=== PATIENT | male | born 1960 | race Caucasian/White ===

== ENCOUNTER 2018-01-18 19:11 | Emergency (ER) | payer OTHER ==
--- NOTE | 2018-01-18 19:46 | ED Physician Chart ---
ED Chief Complaint/HPI - Patient Information Date Seen:: 01/18/18 Time Seen:: 19:46 Chief Complaint:: Alcohol intoxication and right eyebrow laceration History of Present Illness:: 57 yo male was brought from home by ambulance to ER for evaluation of slip and fall. Patient was put on c-collar. Alcohol was noted from patient's breath. He had a laceration on his right eyebrow with periorbital swelling and old blood on face. Allergies:: Allergies Allergy/AdvReac Type Severity Reaction Status Date / Time No Known Allergies Allergy Verified 01/18/18 19:22 Vitals:: Vital Signs - 8 hr 01/18/18 19:22 Temp 97.6 F HR 97 RR 16 BP 110/68 O2 Sat % 94 ED Review of Systems - Review of Systems General/Constitutional: No fever Skin: Skin lesions, Bruising Head: Headache Eyes: Pain ENT: Other (old blood in right nose) Neck: No neck pain Cardio Vascular: No chest pain Pulmonary: No SOB GI: No nausea, No vomiting Musculoskeletal: Bone or joint pain Neurological: Weakness, Other (unsteady gait) ED Past Medical History - Past Medical History Past Medical History: Other (cardiac arrhythmia, sleep apnea) Social History: Smoker, Alcohol, No Drug Use Family Medical History - Family Member Mother History Unknown: Yes ED Physical Exam - Physical Examination General/Constitutional: Awake Other Gen/Cons comments:: Confused Other Head comments:: Right eyebrow laceration, right periorbital swelling. Eyes: PERRL Other ENMT comments:: old abrasions on the nose bridge Respiratory: No Wheeze/Rhonchi/Rales Cardio Vascular: RRR, No murmur, gallop, rubs, NL S1 S2 GI: No tenderness/rebounding/guarding Other Extremities comments:: Left thumb pain Neuro/Psych: Alert/oriented (oriented to self) Other Neuro/Psych comments:: unsteady gait ED Labs/Radiology/EKG Results - Lab Results Results: Laboratory Last Values WBC 7.9 Th/cmm (4.8-10.8) 01/18/18 19:55 RBC 4.08 Mil/cmm (4.30-5.70) L 01/18/18 19:55 Hgb 13.5 gm/dL (12-16) 01/18/18 19:55 Hct 39.5 % (41.0-60) L 01/18/18 19:55 MCV 96.7 fl (80-99) 01/18/18 19:55 MCH 33.1 pg (26.0-30.0) H 01/18/18 19:55 MCHC Differential 34.3 pg (28.0-36.0) 01/18/18 19:55 RDW 15.3 % (11.5-20.0) 01/18/18 19:55 Plt Count 190 Th/cmm (150-400) 01/18/18 19:55 MPV 6.9 fl 01/18/18 19:55 Band Neutrophils % 0 % (0-10) 01/18/18 19:55 Neutrophils (Manual) 60 % (40-80) 01/18/18 19:55 Lymphocytes 28 % (20-50) 01/18/18 19:55 Monocytes 10 % (2-10) 01/18/18 19:55 Eosinophils 4 % (0-5) 01/18/18 19:55 Basophils 0 % (0-3) 01/18/18 19:55 Platelet Estimate ADEQUATE (NORMAL) 01/18/18 19:55 Platelet Morphology NORMAL (NORMAL) 01/18/18 19:55 RBC Morph Micro Appear NORMAL (NORMAL) 01/18/18 19:55 Sodium 142 mEq/L (136-145) 01/18/18 19:55 Potassium 3.8 mEq/L (3.5-5.1) 01/18/18 19:55 Chloride 103 mEq/L (98-107) 01/18/18 19:55 Carbon Dioxide 29.4 mEq/L (21.0-31.0) 01/18/18 19:55 Anion Gap 13.4 (7.0-16.0) 01/18/18 19:55 BUN 8 mg/dL (7-25) 01/18/18 19:55 Creatinine 0.6 mg/dL (0.7-1.3) L 01/18/18 19:55 Est GFR ( Amer) > 60.0 ml/min (>90) 01/18/18 19:55 Est GFR (Non-Af Amer) > 60.0 ml/min 01/18/18 19:55 BUN/Creatinine Ratio 13.3 01/18/18 19:55 Glucose 126 mg/dL (70-105) H 01/18/18 19:55 Calcium 9.7 mg/dL (8.6-10.3) 01/18/18 19:55 Total Bilirubin 0.8 mg/dL (0.3-1.0) 01/18/18 19:55 AST 133 U/L (13-39) H 01/18/18 19:55 ALT 88 U/L (7-52) H 01/18/18 19:55 Alkaline Phosphatase 72 U/L (34-104) 01/18/18 19:55 Total Protein 7.2 gm/dL (6.0-8.3) 01/18/18 19:55 Albumin 4.2 gm/dL (4.2-5.5) 01/18/18 19:55 Globulin 3.0 gm/dL 01/18/18 19:55 Albumin/Globulin Ratio 1.4 (1.0-1.8) 01/18/18 19:55 Urine Source RANDOM 01/19/18 06:20 Urine Color YELLOW 01/19/18 06:20 Urine Clarity CLEAR (CLEAR) 01/19/18 06:20 Urine pH 6.0 (4.6 - 8.0) 01/19/18 06:20 Ur Specific [place] 1.025 (1.005-1.030) 01/19/18 06:20 Urine Protein NEGATIVE mg/dL (NEGATIVE) 01/19/18 06:20 Urine Glucose (UA) NEGATIVE mg/dL (NEGATIVE) 01/19/18 06:20 Urine Ketones NEGATIVE mg/dL (NEGATIVE) 01/19/18 06:20 Urine Blood NEGATIVE (NEGATIVE) 01/19/18 06:20 Urine Nitrate NEGATIVE (NEGATIVE) 01/19/18 06:20 Urine Bilirubin NEGATIVE (NEGATIVE) 01/19/18 06:20 Urine Urobilinogen 0.2 E.U./dL (0.2 - 1.0) 01/19/18 06:20 Ur Leukocyte Esterase NEGATIVE (NEGATIVE) 01/19/18 06:20 Urine RBC 0-2 /hpf (0-5) H 01/19/18 06:20 Urine WBC 0-2 /hpf (0-5) 01/19/18 06:20 Ur Epithelial Cells FEW /lpf (FEW) 01/19/18 06:20 Urine Bacteria OCCASIONAL /hpf (NONE SEEN) 01/19/18 06:20 Urine Mucus FEW /lpf (FEW) 01/19/18 06:20 Urine Opiates Screen NEGATIVE (NEGATIVE) 01/19/18 06:20 Urine Methadone Screen NEGATIVE (NEGATIVE) 01/19/18 06:20 Ur Barbiturates Screen NEGATIVE (NEGATIVE) 01/19/18 06:20 Ur Tricyclics Screen NEGATIVE (NEGATIVE) 01/19/18 06:20 Ur Phencyclidine Scrn NEGATIVE (NEGATIVE) 01/19/18 06:20 Amphetamines Screen NEGATIVE (NEGATIVE) 01/19/18 06:20 U Methamphetamines Scrn NEGATIVE (NEGATIVE) 01/19/18 06:20 U Benzodiazepines Scrn POSITIVE (NEGATIVE) H 01/19/18 06:20 U Cocaine Metab Screen NEGATIVE (NEGATIVE) 01/19/18 06:20 U Cannabinoids Screen NEGATIVE (NEGATIVE) 01/19/18 06:20 Ethyl Alcohol 34 mg/dL (0-10) H 01/19/18 06:30 - Radiology Results Results: C-spine XR: no acute fracture, mild to moderate degenerative changes ED Assessment - Assessment General Assessment: Alcohol intoxication Right eyebrow laceration Facial abrasion Assessment/Comments:: CBC, CMP, ETOH level UA, urine drug screen C-spine X ray CT head wo contrast (patient refused) Laceration repaired by glue NS 1L IV bolus Location:: Right eyebrow Laceration Type:: Simple Wound Length: 1 cm Prep/Irrigation:: NS, betadine Comments: Glued wound with Dermabond ED Septic Shock - . Is Septic Shock (SBP<90, OR Lactate>4 mmol\L) present?: No - <6hrs of presentation: Vital Signs: Vital Signs - 8 hr 01/18/18 19:22 Temp 97.6 F HR 97 RR 16 BP 110/68 O2 Sat % 94 ED Reassessment (Disposition) - Reassessment Reassessment Condition:: Improved - Patient Disposition Discharge/Transfer:: Home ED Discharge Plan - Patient Disposition Admit/Discharge/Transfer: PT DISCHARGED HOME Condition at Disposition: Stable Instructions: Alcohol Intoxication, [id number]
[2018-01-18 20:04] LABS: MANUAL DIFF REQUIRED? YES; MEAN CORPUSCULAR HEMOGLOBIN 33.1 pg (26.0-30.0); WHITE BLOOD COUNT 7.9 Th/cmm (4.8-10.8)
[2018-01-18 20:11] LABS: HEMATOCRIT 39.5 % (41.0-60); HEMOGLOBIN 13.5 gm/dL (12-16); MEAN CELL VOLUME 96.7 fl (80-99); MEAN CORPUSCULAR HGB CONC 34.3 pg (28.0-36.0); MEAN PLATELET VOLUME 6.9 fl; PLATELET COUNT 190 Th/cmm (150-400); RED BLOOD COUNT 4.08 Mil/cmm (4.30-5.70); RED CELL DISTRIBUTION WIDTH 15.3 % (11.5-20.0)
[2018-01-18 20:19] LABS: ALB/GLOB RATIO 1.4 (1.0-1.8); ALBUMIN 4.2 gm/dL (4.2-5.5); ALKALINE PHOSPHATASE 72 U/L (34-104); ANION GAP 13.4 (7.0-16.0); BILIRUBIN,TOTAL 0.8 mg/dL (0.3-1.0); BUN - UREA NITROGEN 8 mg/dL (7-25); CALCIUM SERUM 9.7 mg/dL (8.6-10.3); CARBON DIOXIDE 29.4 mEq/L (21.0-31.0); CHLORIDE 103 mEq/L (98-107); CREATININE - SERUM 0.6 mg/dL (0.7-1.3); GFR AFRICAN-AMERICAN > 60.0 ml/min (>90); GFR NON AFRICAN-AMERICAN > 60.0 ml/min; GLUCOSE 126 mg/dL (70-105); POTASSIUM SERUM 3.8 mEq/L (3.5-5.1); SGOT 133 U/L (13-39); SGPT/ALT 88 U/L (7-52); SODIUM SERUM 142 mEq/L (136-145); TOTAL PROTEIN,SERUM 7.2 gm/dL (6.0-8.3)
[2018-01-18] MEDS ORDERED: Sodium Chloride 0.9% 1,000 ML IV ONE (20:24)
[2018-01-18 20:31] LABS: TOTAL CELLS COUNTED 100
[2018-01-18 20:35] LABS: BAND NEUTROPHILE 0 % (0-10); BASOPHIL 0 % (0-3); EOSINOPHIL 4 % (0-5); LYMPHOCYTE 28 % (20-50); MONOCYTE 10 % (2-10); NEUTROPHILS 60 % (40-80)
[2018-01-18 20:36] LABS: PLATELET ESTIMATE ADEQUATE (NORMAL); PLATELET MORPHOLOGY NORMAL (NORMAL)
[2018-01-19 06:39] LABS: URINE MICROSCOPIC INDICATED? YES; URINE SOURCE RANDOM
[2018-01-19 06:49] LABS: URINE BILIRUBIN NEGATIVE (NEGATIVE); URINE BLOOD NEGATIVE (NEGATIVE); URINE GLUCOSE (UA) NEGATIVE (NEGATIVE); URINE KETONE NEGATIVE (NEGATIVE); URINE LEUKOCYTE ESTERASE NEGATIVE (NEGATIVE); URINE NITRATE NEGATIVE (NEGATIVE); URINE PROTEIN NEGATIVE (NEGATIVE); URINE UROBILINOGEN 0.2 E.U./dL (0.2 - 1.0)
[2018-01-19 07:02] LABS: BENZODIAZEPINES QUAL URINE POSITIVE (NEGATIVE)
[2018-01-19 07:03] LABS: AMPHETAMINE URINE NEGATIVE (NEGATIVE); BARBITURATES URINE NEGATIVE (NEGATIVE); CANNABINOID THC NEGATIVE (NEGATIVE); COCAINE METABOLITE QUAL URINE NEGATIVE (NEGATIVE); METHADONE URINE NEGATIVE (NEGATIVE); METHAMPHETAMINES QUAL URINE NEGATIVE (NEGATIVE); OPIATES (MORPHINE) QUAL. URINE NEGATIVE (NEGATIVE); PHENCYCLIDINE (PCP) URINE NEGATIVE (NEGATIVE); TRICYCLICS (TCA) QUAL. URINE NEGATIVE (NEGATIVE)
[2018-01-19 07:20] LABS: URINE CLARITY CLEAR (CLEAR); URINE COLOR YELLOW
[2018-01-19 07:23] LABS: URINE BACTERIA OCCASIONAL /hpf (NONE SEEN); URINE EPITHELIAL CELLS FEW /lpf (FEW); URINE RBC 0-2 /hpf (0-5); URINE WBC 0-2 /hpf (0-5)
--- NOTE | 2018-01-19 08:47 | Diagnostic Imaging Report ---
Cervical spine 3 limited views Indication: Trauma Comparison: none Findings: Exam is limited due to body habitus. There is visualization of the cervicothoracic junction. No evidence of acute compression fracture or subluxation the visualized portion cervical spine. Multilevel degenerative changes are seen with marginal osteophytic spurs the largest anteriorly at C4/C5. The atlantodental articulation is preserved. No prevertebral soft tissue swelling. Impression: Suboptimal evaluation of the cervicothoracic junction. No evidence of acute compression fracture of subluxation. If indicated, follow up CT examination may be obtained for further assessment. Degenerative changes. In the setting of trauma, if clinical symptoms persist and there is continued concern for an occult fracture, follow up exams in 5-7 days is suggested.
== END 2018-01-19 07:30 | disposition home or self-care (01) ==
LOC: ER 19:11
DX: S01.111A Laceration without foreign body of right eyelid and periocular area, initial encounter (principal); F10.129 Alcohol abuse with intoxication, unspecified; F17.200 Nicotine dependence, unspecified, uncomplicated; W01.0XXA Fall on same level from slipping, tripping and stumbling without subsequent striking against object, initial encounter; Y93.89 Activity, other specified; Y92.89 Other specified places as the place of occurrence of the external cause; Y99.8 Other external cause status
CPT/HCPCS: 99285; 12011; 72040; 36415 ×2; 80307; 85007; 85027; 85025; 81001; 80320 ×2; 80053; Q0162; J7030

== ENCOUNTER 2018-11-15 01:18 | Emergency (ER) | payer OTHER ==
--- NOTE | 2018-11-15 01:24 | ED Physician Chart ---
ED Chief Complaint/HPI - Patient Information Date Seen:: 11/15/18 Time Seen:: 01:22 Chief Complaint:: sob cp Allergies:: Allergies Allergy/AdvReac Type Severity Reaction Status Date / Time No Known Allergies Allergy Verified 01/18/18 19:22 Family Medical History - Family Member Mother History Unknown: Yes ED Septic Shock - . Is Septic Shock (SBP<90, OR Lactate>4 mmol\L) present?: No ED Reassessment (Disposition) - Reassessment Reassessment:: cp sob anxiety Reassessment Condition:: Unchanged (sob) - Diagnosis Diagnosis:: as above
[2018-11-15 01:58] LABS: % BASOPHILS 0.4 % (0.0-2.0); % EOSINOPHILS 3.8 % (0.0-5.0); % LYMPHOCYTES 30.3 % (20.0-50.0); % MONOCYTES 10.2 % (2.0-10.0); % NEUTROPHILS 55.3 % (40.0-80.0); EOSINOPHILE ABSOLUTE 0.4 Th/cmm (0.1-0.4); HEMATOCRIT 35.6 % (41.0-60); HEMOGLOBIN 12.1 gm/dL (12-16); LYMPHOCYTE ABSOLUTE 2.9 Th/cmm (1.5-3.0); MEAN CELL VOLUME 90.5 fl (80-99); MEAN CORPUSCULAR HEMOGLOBIN 30.8 pg (26.0-30.0); MEAN CORPUSCULAR HGB CONC 34.1 pg (28.0-36.0); MEAN PLATELET VOLUME 7.3 fl; NEUTROPHILE ABSOLUTE 5.3 Th/cmm (1.8-8.0); PLATELET COUNT 157 Th/cmm (150-400); RED BLOOD COUNT 3.94 Mil/cmm (4.30-5.70); RED CELL DISTRIBUTION WIDTH 17.8 % (11.5-20.0); WHITE BLOOD COUNT 9.6 Th/cmm (4.8-10.8)
[2018-11-15 02:11] LABS: ALB/GLOB RATIO 1.6 (1.0-1.8); ALBUMIN 4.4 gm/dL (4.2-5.5); ALKALINE PHOSPHATASE 66 U/L (34-104); ANION GAP 14.2 (7.0-16.0); BILIRUBIN,TOTAL 0.4 mg/dL (0.3-1.0); BUN - UREA NITROGEN 11 mg/dL (7-25); CALCIUM SERUM 9.7 mg/dL (8.6-10.3); CARBON DIOXIDE 24.7 mEq/L (21.0-31.0); CHLORIDE 108 mEq/L (98-107); CREATININE - SERUM 0.9 mg/dL (0.7-1.3); CREATININE KINASE 85 U/L (30-223); GFR AFRICAN-AMERICAN > 60.0 ml/min (>90); GFR NON AFRICAN-AMERICAN > 60.0 ml/min; GLUCOSE 102 mg/dL (70-105); POTASSIUM SERUM 3.9 mEq/L (3.5-5.1); SGOT 40 U/L (13-39); SGPT/ALT 33 U/L (7-52); SODIUM SERUM 143 mEq/L (136-145); TOTAL PROTEIN,SERUM 7.2 gm/dL (6.0-8.3)
== END 2018-11-15 03:06 | disposition home or self-care (01) ==
LOC: ER 01:18
DX: F41.9 Anxiety disorder, unspecified (principal); R07.89 Other chest pain; R06.02 Shortness of breath
CPT/HCPCS: 36415-UA; 80053-TC; 82550-TC; 84484-TC; 85025-TC; 93005

== ENCOUNTER 2018-11-20 04:09 | Emergency (ER) | payer OTHER ==
[2018-11-20 04:49] LABS: EOSINOPHILE ABSOLUTE 0.5 Th/cmm (0.1-0.4); HEMATOCRIT 38.3 % (41.0-60); HEMOGLOBIN 12.9 gm/dL (12-16); LYMPHOCYTE ABSOLUTE 3.6 Th/cmm (1.5-3.0); MEAN CELL VOLUME 89.8 fl (80-99); MEAN CORPUSCULAR HEMOGLOBIN 30.2 pg (26.0-30.0); MEAN CORPUSCULAR HGB CONC 33.6 pg (28.0-36.0); MONOCYTE ABSOLUTE 1.8 Th/cmm (0.3-1.0); NEUTROPHILE ABSOLUTE 5.6 Th/cmm (1.8-8.0); PLATELET COUNT 230 Th/cmm (150-400); RED BLOOD COUNT 4.27 Mil/cmm (4.30-5.70); RED CELL DISTRIBUTION WIDTH 17.3 % (11.5-20.0); WHITE BLOOD COUNT 11.5 Th/cmm (4.8-10.8)
[2018-11-20 05:07] LABS: ALB/GLOB RATIO 1.3 (1.0-1.8); ALBUMIN 3.9 gm/dL (4.2-5.5); ALKALINE PHOSPHATASE 57 U/L (34-104); ANION GAP 16.7 (7.0-16.0); BILIRUBIN,TOTAL 0.4 mg/dL (0.3-1.0); BUN - UREA NITROGEN 17 mg/dL (7-25); CALCIUM SERUM 9.2 mg/dL (8.6-10.3); CARBON DIOXIDE 23.4 mEq/L (21.0-31.0); CHLORIDE 105 mEq/L (98-107); CREATININE KINASE 155 U/L (30-223); GFR AFRICAN-AMERICAN > 60.0 ml/min (>90); GFR NON AFRICAN-AMERICAN > 60.0 ml/min; GLUCOSE 97 mg/dL (70-105); POTASSIUM SERUM 4.1 mEq/L (3.5-5.1); SGOT 23 U/L (13-39); SGPT/ALT 20 U/L (7-52); SODIUM SERUM 141 mEq/L (136-145); TOTAL PROTEIN,SERUM 6.9 gm/dL (6.0-8.3)
[2018-11-20 05:21] LABS: URINE SOURCE RANDOM
[2018-11-20 05:29] LABS: URINE BILIRUBIN NEGATIVE (NEGATIVE); URINE BLOOD NEGATIVE (NEGATIVE); URINE GLUCOSE (UA) NEGATIVE (NEGATIVE); URINE KETONE NEGATIVE (NEGATIVE); URINE LEUKOCYTE ESTERASE NEGATIVE (NEGATIVE); URINE NITRATE NEGATIVE (NEGATIVE); URINE PH 5.5 (4.6 - 8.0); URINE PROTEIN NEGATIVE (NEGATIVE); URINE UROBILINOGEN 0.2 E.U./dL (0.2 - 1.0)
[2018-11-20 05:30] LABS: BAND NEUTROPHILE 6 % (0-10); LYMPHOCYTE 25 % (20-50); MONOCYTE 12 % (2-10); NEUTROPHILS 57 % (40-80)
[2018-11-20] MEDS ORDERED: Aspirin 325 mg EC PO ONE (05:48)
[2018-11-20 05:49] LABS: URINE CLARITY CLEAR (CLEAR); URINE COLOR STRAW; URINE MICROSCOPIC INDICATED? NO
[2018-11-20] MEDS ORDERED: Sodium Chloride 0.9% 1,000 ML IV ONE (05:55)
--- NOTE | 2018-11-20 06:07 | ED Physician Chart ---
ED Chief Complaint/HPI - Patient Information Date Seen:: 11/20/18 Time Seen:: 04:16 Chief Complaint:: heart racing History of Present Illness:: this is a 58 yo male with sob and rapid heart beat who is concerned about being weak. he smokes, has a history of heart disease,copd, sleep apnea, dyslipidemia ,hypertension and anxiety. he also drinks alcohol. he also has left shoulder pain 5/10 on and off. his symptoms has been going on for several days with any uri symptom of cough and fever. Allergies:: Allergies Allergy/AdvReac Type Severity Reaction Status Date / Time No Known Drug Allergies Allergy Verified 11/15/18 01:45 Vitals:: Vital Signs - 8 hr 11/20/18 04:10 Temp 98.1 F HR 71 RR 17 BP 135/73 O2 Sat % 96 Historian:: Patient Review:: Nurse's Note Reviewed, Old Chart Reviewed ED Review of Systems - Review of Systems General/Constitutional: No fever, No chills, No weight loss, Weakness, No diaphoresis, No edema, No loss of appetite Skin: No skin lesions, No rash, No bruising Head: No headache, No light-headedness Eyes: No loss of vision, No pain, No diplopia ENT: No earache, No nasal drainage, No sore throat, No tinnitus Neck: No neck pain, No swelling, No thyromegaly, No stiffness, No mass noted Cardio Vascular: Chest pain, Palpitations, No PND, No orthopnea, No edema Pulmonary: SOB, No cough, No sputum, No wheezing GI: No nausea, No vomiting, No diarrhea, No pain, No melena, No hematochezia, No constipation, No hematemesis G/U: No dysuria, No frequency, No hematuria Musculoskeletal: No bone or joint pain, No back pain, No muscle pain Endocrine: No polyuria, No polydipsia Psychiatric: No prior psych history, No depression, No anxiety, No suicidal ideation Hematopoietic: No bruising, No lymphadenopathy Allergic/Immuno: No urticaria, No angioedema Neurological: No syncope, No focal symptoms, No weakness, No paresthesia, No headache, No seizure, No dizziness, No confusion, No vertigo ED Past Medical History - Past Medical History Obtainable: Yes Past Medical History: HTN, CAD, Asthma/COPD, Dyslipidemia Family History: None Social History: Smoker, Alcohol, No Drug Use Surgical History: None Psychiatricy History: Other (anxiety) Medication: Reviewed Family Medical History - Family Member Mother History Unknown: Yes ED Physical Exam - Physical Examination General/Constitutional: Awake, Well-developed, well-nourished, Alert, No distress, GCS 15, Non-toxic appearing, Ambulatory Head: Atraumatic Eyes: Lids, conjuctiva normal, PERRL, EOMI Skin: Nl inspection, No rash, No skin lesions, No ecchymosis, Well hydrated, No lymphadenopathy ENMT: External ears, nose nl, Nasal exam nl, Lips, teeth, gums nl Neck: Nontender, Full ROM w/o pain, No JVD, No nuchal rigidity, No bruit, No mass, No stridor Respiratory: Nl effort/Exclusion, Clear to Auscultation, No Wheeze/Rhonchi/Rales Cardio Vascular: RRR, No murmur, gallop, rubs, NL S1 S2 GI: No tenderness/rebounding/guarding, No organomegaly, No hernia, Normal BS's, Nondistended, No mass/bruits, No McBurney tenderness : No CVA tenderness Extremities: No tenderness or effusion, Full ROM, normal strength in all extremities, No edema, Normal digits & nails Neuro/Psych: Alert/oriented, DTR's symmetric, Normal sensory exam, Normal motor strength, Judgement/insight normal, Mood normal, Normal gait, No focal deficits Misc: Normal back, No paraspinal tenderness ED Labs/Radiology/EKG Results - Lab Results Results: Laboratory Tests 11/20/18 11/20/18 11/20/18 04:22 04:22 05:15 WBC 11.5 H RBC 4.27 L Hgb 12.9 Hct 38.3 L MCV 89.8 MCH 30.2 H MCHC Differential 33.6 RDW 17.3 Plt Count 230 MPV 7.0 Add Manual Diff YES Band Neutrophils % 6 Neutrophils (Manual) 57 Lymphocytes 25 Monocytes 12 H Sodium 141 Potassium 4.1 Chloride 105 Carbon Dioxide 23.4 Anion Gap 16.7 H BUN 17 Creatinine 1.0 Est GFR ( Amer) > 60.0 Est GFR (Non-Af Amer) > 60.0 BUN/Creatinine Ratio 17.0 Glucose 97 Calcium 9.2 Total Bilirubin 0.4 AST 23 ALT 20 Alkaline Phosphatase 57 Creatine Kinase 155 Total Protein 6.9 Albumin 3.9 L Globulin 3.0 Albumin/Globulin Ratio 1.3 Urine Source RANDOM Urine Color STRAW Urine Clarity CLEAR Urine pH 5.5 Ur Specific [place] 1.020 Urine Protein NEGATIVE Urine Glucose (UA) NEGATIVE Urine Ketones NEGATIVE Urine Blood NEGATIVE Urine Nitrate NEGATIVE Urine Bilirubin NEGATIVE Urine Urobilinogen 0.2 Ur Leukocyte Esterase NEGATIVE - Radiology Results Results: chest x-ray = nad - EKG Interpretations EKG Time:: 04:28 Rate & Rhythm: rate = 120, atrial fib [place]: right ED Assessment - Assessment General Assessment: this patient has a low bp, rapid heart rate and symptomatic. he will get a fluid challenge to get the bp up and may get some verapermil iv. the on coming doctor will have to decide whether he should be admitted or not. the patient was given toradol for his left shoulder pain from an old fracture. ED Septic Shock - . Is Septic Shock (SBP<90, OR Lactate>4 mmol\L) present?: No - <6hrs of presentation: Vital Signs: Vital Signs - 8 hr 11/20/ 04:10 Temp 98.1 F HR 71 RR 17 BP 135/73 O2 Sat % 96 ED Reassessment (Disposition) - Reassessment Reassessment Condition:: Improved - Diagnosis Diagnosis:: atrial fibrillation left shoulder pain alcohol abuse - Aftercare/Follow up Instructions Notes:: this patient will be taken care of by dr Galvez starting at 0700 hrs.
[2018-11-20 06:15] LABS: AMPHETAMINE URINE NEGATIVE (NEGATIVE); BARBITURATES URINE NEGATIVE (NEGATIVE); BENZODIAZEPINES QUAL URINE POSITIVE (NEGATIVE); CANNABINOID THC NEGATIVE (NEGATIVE); COCAINE METABOLITE QUAL URINE NEGATIVE (NEGATIVE); METHADONE URINE NEGATIVE (NEGATIVE); METHAMPHETAMINES QUAL URINE NEGATIVE (NEGATIVE); OPIATES (MORPHINE) QUAL. URINE NEGATIVE (NEGATIVE); PHENCYCLIDINE (PCP) URINE NEGATIVE (NEGATIVE); TRICYCLICS (TCA) QUAL. URINE NEGATIVE (NEGATIVE)
--- NOTE | 2018-11-20 09:33 | Diagnostic Imaging Report ---
Chest x-ray single view History: Chest pain Comparison: None The heart size is normal. No focal pulmonary parenchymal processes. No hilar or mediastinal abnormalities. Impression: No acute abnormalities
== END 2018-11-20 08:15 | disposition home or self-care (01) ==
LOC: ER 04:09
DX: I48.91 Unspecified atrial fibrillation (principal); F10.10 Alcohol abuse, uncomplicated; M25.512 Pain in left shoulder; I10 Essential (primary) hypertension; I25.10 Atherosclerotic heart disease of native coronary artery without angina pectoris; J44.9 Chronic obstructive pulmonary disease, unspecified; E78.5 Hyperlipidemia, unspecified; F17.200 Nicotine dependence, unspecified, uncomplicated
CPT/HCPCS: 99284; 96372; 96374; 93005; 71045; 84484; 36415; 80307; 85007; 85025; 81003; 80320; 82550; 80053; 87081; J1885; J0696; J7030

== ENCOUNTER 2018-12-16 11:30 | Inpatient (IN) | payer OTHER ==
[2018-12-16] MEDS ORDERED: Aspirin 81mg Chewable Tab PO STA (11:39)
[2018-12-16] MEDS ORDERED: Aspirin 81mg Chewable Tab ONE (11:42)
--- NOTE | 2018-12-16 11:46 | ED Physician Chart ---
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 Pain, A/N/V/D/C, fever, chills, or urinary s/s Allergies:: Allergies Allergy/AdvReac Type Severity Reaction Status Date / Time No Known Drug Allergies Allergy Verified 11/15/18 01:45 Historian:: Patient Review:: Nurse's Note Reviewed, Old Chart Reviewed ED Review of Systems - Review of Systems General/Constitutional: No fever, No chills, No weight loss, No weakness, No diaphoresis, No edema, No loss of appetite Skin: No skin lesions, No rash, No bruising Head: No headache, No light-headedness Eyes: No loss of vision, No pain, No diplopia ENT: No earache, No nasal drainage, No sore throat, No tinnitus Neck: No neck pain, No swelling, No thyromegaly, No stiffness, No mass noted Cardio Vascular: Chest pain, Palpitations, No PND, No orthopnea, No edema Pulmonary: SOB, No cough, No sputum, No wheezing GI: No nausea, No vomiting, No diarrhea, No pain, No melena, No hematochezia, No constipation, No hematemesis G/U: No dysuria, No frequency, No hematuria, No nacturia Musculoskeletal: No bone or joint pain, No back pain, No muscle pain Endocrine: No polyuria, No polydipsia Psychiatric: No prior psych history, No depression, No anxiety, No suicidal ideation, No homicidal ideation, No auditory hallucination, No visual hallucination Hematopoietic: No bruising, No lymphadenopathy Allergic/Immuno: No urticaria, No angioedema Neurological: No syncope, No focal symptoms, No weakness, No paresthesia, No headache, No seizure, No dizziness, No confusion, No vertigo ED Past Medical History - Past Medical History Obtainable: Yes Past Medical History: HTN, Other (Cardiac Arrythmias) Family History: HTN Social History: Smoker, Alcohol, No Drug Use, Surgical History: None Psychiatricy History: None Medication: Reviewed Family Medical History - Family Member Mother History Unknown: Yes ED Physical Exam - Physical Examination General/Constitutional: Awake, Well-developed, well-nourished, Alert, No distress, GCS 15, Non-toxic appearing, Ambulatory Head: Atraumatic Eyes: Lids, conjuctiva normal, PERRL, EOMI Skin: Nl inspection, No rash, No skin lesions, No ecchymosis, Well hydrated, No lymphadenopathy ENMT: External ears, nose nl, TM canals nl, Nasal exam nl, Lips, teeth, gums nl , Oropharynx nl, Tonsils nl Neck: Nontender, Full ROM w/o pain, No JVD, No nuchal rigidity, No bruit, No mass, No stridor Other Neck comments:: supple; no meningeal signs; no cervical tenderness Respiratory: Nl effort/Exclusion, Clear to Auscultation, No Wheeze/Rhonchi/Rales Cardio Vascular: RRR, No murmur, gallop, rubs, NL S1 S2, Carotid/Femoral/Distal pulses equal bilaterally GI: No tenderness/rebounding/guarding, No organomegaly, No hernia, Normal BS's, Nondistended, No mass/bruits, No McBurney tenderness Other GI comments:: no pulsatile masses : No CVA tenderness Extremities: No tenderness or effusion, Full ROM, normal strength in all extremities, No edema, Normal digits & nails Neuro/Psych: Alert/oriented, DTR's symmetric, Normal sensory exam, Normal motor strength, Judgement/insight normal, Mood normal, Normal gait, No focal deficits Misc: Normal back, No paraspinal tenderness ED Labs/Radiology/EKG Results - Lab Results Comments:: Reviewed - Radiology Results Comments:: CM; MAD; Mild Chronic Lung Changes; Old Left Humeral Head and Neck Fractures; ASCVD - EKG Interpretations EKG Time:: 11:40 Rate & Rhythm: 74; NSR Comments:: LAE; PVCs; non-specific st-t changes ED Septic Shock - . Is Septic Shock (SBP<90, OR Lactate>4 mmol\L) present?: No ED Reassessment (Disposition) - Reassessment Reassessment Condition:: Improved - Diagnosis Diagnosis:: Palpitations; Cardiac Arrythmias; Chest Pain; Dyspnea; Angina Pectoris; HTN; Leukocytosis; Hypoalbuminemia; Unstable Angina - Aftercare/Follow up Instructions Aftercare/Follow-Up Instructions:: Counseled pt regarding lab results/diagnosis & need follow up, Counseled pt & family regarding lab results/diagnosis & need follow up - Patient Disposition Discharge/Transfer:: Acute Care w/in this hosp Accepting Physician:: Dr. Alcocer Time Called:: 0350 Time Responded:: 13:40 Admitted to:: Telemetry Spoke to:: Dr. Alcocer Admitting Medical Physician:: Dr. Alcocer Condition at Disposition:: Stable, Improved
[2018-12-16 12:00] LABS: HEMATOCRIT 37.2 % (41.0-60); HEMOGLOBIN 12.4 gm/dL (12-16); MEAN CELL VOLUME 90.5 fl (80-99); MEAN CORPUSCULAR HEMOGLOBIN 30.1 pg (26.0-30.0); MEAN CORPUSCULAR HGB CONC 33.2 pg (28.0-36.0); MEAN PLATELET VOLUME 7.4 fl; PLATELET COUNT 193 Th/cmm (150-400); RED BLOOD COUNT 4.11 Mil/cmm (4.30-5.70); RED CELL DISTRIBUTION WIDTH 16.6 % (11.5-20.0); WHITE BLOOD COUNT 12.3 Th/cmm (4.8-10.8)
--- NOTE | 2018-12-16 12:07 | Diagnostic Imaging Report ---
CHEST X-RAY: AP view INDICATION: pain COMPARISON: 11/20/2018 FINDINGS: Mild chronic lung changes are noted. There is no focal consolidation or pleural effusions The heart is upper limits of normal in size. There is minimal atherosclerosis of the aortic arch. There is evidence of an age-indeterminate displaced impacted left humeral head and neck fracture. IMPRESSION: No focal consolidation identified. Minimal atherosclerosis of the aortic arch. Age indeterminate displaced impacted fracture of the left humeral head and neck. Findings may be chronic. Please correlate clinical history and old exams. Consider additional dedicated left shoulder views if indicated.
[2018-12-16 12:10] LABS: INR 1.08 (0.5-1.4); PROTHROMBIN TIME (TEST) 11.2 SECONDS (9.5-11.5)
[2018-12-16 12:19] LABS: ALB/GLOB RATIO 1.2 (1.0-1.8); ALBUMIN 4.1 gm/dL (4.2-5.5); ALKALINE PHOSPHATASE 68 U/L (34-104); ANION GAP 15.1 (7.0-16.0); BILIRUBIN,TOTAL 0.9 mg/dL (0.3-1.0); BUN - UREA NITROGEN 14 mg/dL (7-25); CALCIUM SERUM 9.3 mg/dL (8.6-10.3); CARBON DIOXIDE 24.8 mEq/L (21.0-31.0); CHLORIDE 104 mEq/L (98-107); CHOLESTEROL 108 mg/dL (<200); CREATININE KINASE 71 U/L (30-223); GFR AFRICAN-AMERICAN > 60.0 ml/min (>90); GFR NON AFRICAN-AMERICAN > 60.0 ml/min; GLUCOSE 103 mg/dL (70-105); HDL -HIGH DENSITY LIPOPROTEIN 40 mg/dL (23-92); POTASSIUM SERUM 3.9 mEq/L (3.5-5.1); SGOT 26 U/L (13-39); SGPT/ALT 17 U/L (7-52); SODIUM SERUM 140 mEq/L (136-145); TOTAL PROTEIN,SERUM 7.5 gm/dL (6.0-8.3); TRIGLYCERIDES 88 mg/dL (<150)
[2018-12-16 12:28] LABS: BAND NEUTROPHILE 2 % (0-10); BASOPHIL 0 % (0-3); EOSINOPHIL 1 % (0-5); LYMPHOCYTE 13 % (20-50); MONOCYTE 10 % (2-10); NEUTROPHILS 74 % (40-80)
[2018-12-16] MEDS ORDERED: NITROGLYCERIN OINT 2% 1 INCH PACKET TP STA (12:31)
[2018-12-16] MEDS ORDERED: NITROGLYCERIN OINT 2% 1 INCH PACKET TP ONE (12:34)
[2018-12-16 12:51] LABS: DDIMER QUANT 222 ng/mL (100-400)
[2018-12-16 17:12] VITALS: BP 114/78
[2018-12-16] MEDS: Sulfamethoxazole/TMP 800/160mg Tab PO SCH (17:48)
[2018-12-16] MEDS: NITROGLYCERIN OINT 2% 1 INCH PACKET TP SCH (17:55)
[2018-12-17 05:05] LABS: BASOPHILE ABSOLUTE 0.1 Th/cumm (0-0.2); EOSINOPHILE ABSOLUTE 0.2 Th/cmm (0.1-0.4); HEMATOCRIT 33.9 % (41.0-60); HEMOGLOBIN 11.2 gm/dL (12-16); LYMPHOCYTE ABSOLUTE 2.4 Th/cmm (1.5-3.0); MEAN CELL VOLUME 92.1 fl (80-99); MEAN CORPUSCULAR HEMOGLOBIN 30.4 pg (26.0-30.0); MONOCYTE ABSOLUTE 1.9 Th/cmm (0.3-1.0); NEUTROPHILE ABSOLUTE 5.6 Th/cmm (1.8-8.0); PLATELET COUNT 178 Th/cmm (150-400); RED BLOOD COUNT 3.68 Mil/cmm (4.30-5.70); RED CELL DISTRIBUTION WIDTH 16.4 % (11.5-20.0); WHITE BLOOD COUNT 10.2 Th/cmm (4.8-10.8)
[2018-12-17 05:29] LABS: ALB/GLOB RATIO 1.3 (1.0-1.8); ALBUMIN 3.8 gm/dL (4.2-5.5); ALKALINE PHOSPHATASE 67 U/L (34-104); ANION GAP 13.6 (7.0-16.0); BILIRUBIN,TOTAL 0.5 mg/dL (0.3-1.0); BUN - UREA NITROGEN 20 mg/dL (7-25); CALCIUM SERUM 9.2 mg/dL (8.6-10.3); CHLORIDE 103 mEq/L (98-107); CHOLESTEROL 99 mg/dL (<200); GFR AFRICAN-AMERICAN > 60.0 ml/min (>90); GFR NON AFRICAN-AMERICAN > 60.0 ml/min; GLUCOSE 78 mg/dL (70-105); HDL -HIGH DENSITY LIPOPROTEIN 37 mg/dL (23-92); POTASSIUM SERUM 3.6 mEq/L (3.5-5.1); SGOT 20 U/L (13-39); SGPT/ALT 16 U/L (7-52); SODIUM SERUM 137 mEq/L (136-145); TOTAL PROTEIN,SERUM 6.8 gm/dL (6.0-8.3); TRIGLYCERIDES 81 mg/dL (<150)
[2018-12-17 06:22] LABS: BAND NEUTROPHILE 2 % (0-10); LYMPHOCYTE 26 % (20-50); MONOCYTE 12 % (2-10); NEUTROPHILS 60 % (40-80)
[2018-12-17] MEDS: Sulfamethoxazole/TMP 800/160mg Tab PO SCH ×2 (08:24→16:07)
[2018-12-17] MEDS: NITROGLYCERIN OINT 2% 1 INCH PACKET TP SCH ×2 (08:27→16:04)
[2018-12-17] MEDS: Aspirin 81mg Chewable Tab PO SCH ×2 (08:27→12:38)
[2018-12-17] MEDS ORDERED: Atorvastatin Calcium 10 MG TAB PO SCH (09:00)
[2018-12-17] MEDS ORDERED: Non-Formulary Item 1 EA (Albuterol Sulfate [Proair Hfa] 2 PUFF) IH PRN (11:26)
[2018-12-17] MEDS: Multivitamin Tab PO SCH (13:00)
[2018-12-17] MEDS: Pantoprazole 40 mg EC Tab PO SCH (13:00)
--- NOTE | 2018-12-17 13:25 | History & Physical ---
ADMIT DATE: 12/16/2018 CHIEF COMPLAINT: Chest pressure. HISTORY OF PRESENT ILLNESS: This is a 58-year-old gentleman who presented to the ER with a 6-hour history of chest pressure, mostly located on the left sternal border, associated with palpitations. He has been experiencing this kind of pressure on and off for the last 2 months and had an extensive cardiac workup at the [facility] about 3 weeks ago. The patient apparently had a stress test and a cardiac catheterization with negative workup. At that time, he was prescribed aspirin, statin and a beta tianna, but still he complains of on and off chest pressure. He apparently went to the [facility] prior to coming to the ER and was told that most likely this pressure was not cardiac in nature, but given the persistence of a pressure, he decided to come in to our ER and now has been admitted to the tele[facility] for management and care. He does have history of trauma to the left shoulder and to the chest after he suffered a fall a couple of years ago. PAST MEDICAL HISTORY: History of htn and hyperlipidemia, history of neuropathy. 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 He does have an extensive history of nicotine dependence, about of 40+ year 1 pack history. He has been diagnosed with cardiac arrhythmia, although he is not sure of the name. PAST SURGICAL HISTORY: No major surgeries reported. FAMILY HISTORY: Both parents are in their mid 80s. No cardiac issues per se. SOCIAL HISTORY: Extensive ETOH history, quit about 3 weeks ago and feels he still is a little jittery, but denies any withdrawals. He smokes about half a pack a day nowadays, but for years, he was smoking a pack a day. He has been smoking since his teenage years. ALLERGIES: NKDA. OUTPATIENT MEDICATIONS: Bactrim one tab b.i.d., ProAir 2 puffs q.4 p.r.n., aspirin 81 every day, atorvastatin 40 every day, folic acid 1 mg every day, gabapentin 300 mg t.i.d., Motrin 800 mg t.i.d.; lorazepam 1 mg q.6, metoprolol 25 mg b.i.d., omeprazole 20 mg every day, tramadol 50 mg q.8 p.r.n. for pain. REVIEW OF SYSTEMS: CONSTITUTIONAL: No fever or chills. No recent weight loss. CARDIOVASCULAR: Please refer to the HPI. PULMONARY: No cough or phlegm production. He denies any shortness of breath. GASTROINTESTINAL: No bowel habit changes. GENITOURINARY: He was prescribed Bactrim at the [facility] for UTI, but he denies any UTI symptomatology at this time. NEUROLOGIC: Peripheral neuropathy on both lower extremities. MUSCULOSKELETAL: Chronic left shoulder pain after the fall, also complaining of right hand pain, right pinky pain. PHYSICAL EXAMINATION: VITAL SIGNS: Temperature 98.0, pulse 68, respirations 16, BP 117/65, satting 98% on room air. GENERAL: Well-developed, well-nourished male, not in acute distress, speaking in full sentences. HEAD AND NECK: Normocephalic, atraumatic. Pupils reactive to light. Extraocular movements are intact. Oropharynx moist and clear. CARDIAC: Regular rate and rhythm with distant sounds. No audible S1, S2 could be heard at this time. LUNGS: Diminished at the bases, but clear to auscultation bilaterally. ABDOMEN: Soft, supple, nontender, nondistended, normoactive bowel sounds. LOWER EXTREMITIES: No pedal edema. CHEST WALL: There is mild tenderness to palpation on the left sternal border. LABORATORY DATA: White count 12.3, H and H 12/37, with platelets 193. Chemistry was within normal limits. Troponins are negative x 2 sets. BNP 102. LFTs were essentially within normal limits. The lipid panel shows cholesterol level of 108, LDL 57, HDL 40. TSH was within normal limits. DIAGNOSTICS: EKG, sinus rhythm at a rate of 60. Chest x-ray, no focal consolidations identified, minimal atherosclerosis of the aortic arch, age indeterminate displaced impacted fracture of the left humeral head and neck, findings may be chronic. ASSESSMENT: 1. Chest pressure, rule out acute coronary syndrome. The patient with recent extensive workup negative for coronary artery disease. Risk factors include hypertension and history of hyperlipidemia. Other factors include nicotine dependence. 2. History of arrhythmia. 3. History of chronic ETOH with a peripheral neuropathy. 4. Nicotine dependence. PLAN: The patient has been admitted to the tele [facility] for management and care. We will continue to monitor troponins. A 2D echo also has been ordered. Cardiology consult will also be asked for further management and care. At this time, the patient appears to be stable and has been started on his medications including the metoprolol for the presumed arrhythmia and the statin. He also has been kept on his aspirin as scheduled. I have discussed current findings and plan with the patient who is agreeable. JOB# [id number]
[2018-12-17] MEDS ORDERED: Probiotic Screen MC PRN (15:25)
[2018-12-17] MEDS: Lactobacillus Rhamnosus GG 15 Billion CFU CAP.SPRINK PO SCH (16:09)
[2018-12-17] MEDS ORDERED: Albuterol Nebulizer 2.5mg/3mL HHN PRN (18:51)
--- NOTE | 2018-12-17 23:18 | Consultation ---
DATE OF CONSULTATION: 12/16/[address] Alcocer. HISTORY OF PRESENT ILLNESS: This is a 58-year-old male patient recently admitted to rehab hospital for 3 weeks ago complaining of chest pain. The patient had a stress test, coronary angiogram, which was negative. Following this, the patient was discharged. PAST MEDICAL HISTORY: Hyperlipidemia, peripheral neuropathy secondary to ETOH use, alcohol dependence, nicotine dependence. FAMILY HISTORY: Unremarkable. SOCIAL HISTORY: The patient has a history of smoking or alcohol use. ALLERGIES: None. PHYSICAL EXAMINATION: VITAL SIGNS: Blood pressure 130/80, pulse 70, respirations 20. HEAD: Normocephalic. No lumps or bumps. EYES: Pupils equal, reactive to light. Fundi show AV nicking, sclerae white, conjunctivae pink. NECK: Carotid 2+. Normal upstroke. JVD flat. Thyroid not palpable. Lymph nodes not palpable. CHEST: Shows increased AP diameter. No kyphosis or scoliosis. LUNGS: Bilateral bronchovesicular breath sounds. HEART: PMI fifth intercostal space with lateral to midclavicular line. S1, S2. No S3, S4, soft systolic murmur. ABDOMEN: Soft. Liver, spleen not palpable. No organomegaly. Bowel sounds active. NEUROLOGIC: The patient has peripheral neuropathy. EXTREMITIES: Peripheral pulses 2+. No pedal edema. CLINICAL IMPRESSION: Atypical chest pain unlikely coronary artery disease with recent coronary angiogram negative, hyperlipidemia, peripheral neuropathy, alcohol dependence, nicotine dependence. PLAN: The patient's troponin levels are normal. EKG unremarkable. The patient cleared for discharge. [facility]# [id number]
[2018-12-18] MEDS: Pantoprazole 40 mg EC Tab PO SCH (06:44)
[2018-12-18] MEDS: Sulfamethoxazole/TMP 800/160mg Tab PO SCH (08:38)
[2018-12-18] MEDS: Multivitamin Tab PO SCH (08:38)
[2018-12-18] MEDS: Aspirin 81mg Chewable Tab PO SCH ×2 (08:39→08:59)
[2018-12-18] MEDS: Lactobacillus Rhamnosus GG 15 Billion CFU CAP.SPRINK PO SCH (08:40)
[2018-12-18] MEDS: NITROGLYCERIN OINT 2% 1 INCH PACKET TP SCH (09:00)
--- NOTE | 2018-12-19 16:14 | Discharge Summary ---
DATE OF DISCHARGE: 12/18/2018 ADMITTING DIAGNOSES: 1. Chest pain, rule out acute coronary syndrome. 2. Palpitations. SECONDARY DIAGNOSES: Includes history of arrhythmia, previous history of chest pain with negative workup, history of ETOH, chronic ETOH, history of dyslipidemia, history of hypertension, history of nicotine dependence. DISCHARGE DIAGNOSES: 1. Likely atypical chest pain, negative workup for acute coronary syndrome. 2. Palpitations. Clinically, stable. CONSULTANTS: Dr. Dustin Lazaro, Cardiology. MAJOR PROCEDURES: There was a 2D echo done with preliminary results being negative (official results pending). BRIEF HOSPITAL COURSE: A 58-year-old gentleman who presented to the ER with a 6-hour history of chest pressure, mostly located on the left sternal border associated with palpitations. Apparently, the patient has been experiencing this pressure for the last few weeks, perhaps 2 months and had extensive workup at the [facility] 3 weeks ago, which included a stress test and a cardiac catheterization with negative results. Nevertheless, he has been prescribed aspirin, statin, and a beta-tianna. He was told that he had an arrhythmia, but is unsure as to the name of it. He decided to come into the ER given that the pressure did not subside. At the time of admission, he had no radiation of the pressure, no shortness of breath, no diaphoresis, no nausea, vomiting, but was complaining of palpitations. He was admitted to the [facility] and was kept on his medications as scheduled. His troponins were negative and the rest of his labs were essentially within normal limits. The patient had EKGs and a 2D echo with apparent negative results. The patient was seen by Cardiology who cleared him for discharge. At the time of his discharge, the chest pressure had improved. MEDICATIONS ON DISCHARGE: Albuterol ProAir 2 puffs q. 4 hours p.r.n., aspirin 81 daily, atorvastatin 40 every day, folic acid 1 mg daily, gabapentin 300 mg t.i.d., ibuprofen 800 mg t.i.d., lorazepam 1 mg q. 6 p.r.n. for anxiety, metoprolol 25 b.i.d., omeprazole 20 every day, multivitamins every day, tramadol 50 mg q. 8 hours p.r.n. for severe pain. DISPOSITION: The patient was instructed to follow up with his primary care doctor with 2-3 days and with his Cardiology as scheduled. JOB# [id number]
--- NOTE | 2018-12-19 20:41 | Cardiology ---
12/17/2018 ECHOCARDIOGRAM REPORT Patient of Dr. Alcocer. M-MODE ECHOCARDIOGRAM: Mitral valve, anterior leaflet. Mitral valve shows normal excursion, EF velocity. Posterior leaflet of the mitral valve shows normal excursion. Left ventricular posterior wall shows increased thickness, normal excursion. Interventricular septum shows increased thickness, normal excursion. There is minimal hypertrophy of the left ventricle, ejection fraction 67%. Left atrium normal. Aortic root shows normal dimension, normal excursion of aortic leaflets. CONCLUSION: Minimal hypertrophy of the left ventricle, ejection fraction 67%. 2D ECHO: Long axis view shows normal sized left ventricle with hypertrophy of the left ventricle. Left atrium normal. Aortic root shows normal dimension, normal excursion of aortic leaflets. Short axis view of mitral valve normal. Short axis view of aortic valve normal. Apical four chamber view showed normal sized left ventricle, left atrium, right ventricle, right atrium, tricuspid and mitral valve. Hypertrophy of the left ventricle, ejection fraction 67%. CONCLUSION: Hypertrophy of the left ventricle, ejection fraction 67%. Doppler study shows [id number] mitral regurgitation, mild tricuspid regurgitation, right ventricular systolic pressure 26 mmHg. JOB# [id number]
== END 2018-12-18 09:45 | disposition home or self-care (01) | DRG 313 ==
LOC: ER 11:30 → TELE 16:00
PROVIDERS: ADMIT Internal Medicine; ATTEND Internal Medicine
DX: R07.89 Other chest pain (principal); I20.0 Unstable angina; I10 Essential (primary) hypertension; F17.210 Nicotine dependence, cigarettes, uncomplicated; G62.9 Polyneuropathy, unspecified; E78.5 Hyperlipidemia, unspecified; F10.20 Alcohol dependence, uncomplicated; R00.2 Palpitations
CPT/HCPCS: 36415-UA; 71045-TC; 80053-TC; 80061-TC; 82550-TC; 83036-90; 83880-TC; 84443-TC; 84484-TC; 85007-TC; 85025-TC; 85379-TC; 85610-TC; 93005; 94760; Z7610

== ENCOUNTER 2019-01-22 05:30 | Emergency (ER) | payer OTHER ==
--- NOTE | 2019-01-22 06:10 | ED Physician Chart ---
ED Chief Complaint/HPI - Patient Information Date Seen:: 01/22/19 Time Seen:: 06:05 Chief Complaint:: weakness History of Present Illness:: this is a 58 yo male who states that he has been getting weakness increasingly over the last few weeks. he stated that he is currently being treated for alcohol withdrawal. he is concerned about his shaking and weakness. Allergies:: Allergies Allergy/AdvReac Type Severity Reaction Status Date / Time No Known Drug Allergies Allergy Verified 01/22/19 05:35 Vitals:: Vital Signs - 8 hr 01/22/19 05:30 Temp 98.1 F HR 79 RR 20 BP 119/56 O2 Sat % 99 Historian:: Patient Review:: Nurse's Note Reviewed, Old Chart Reviewed ED Review of Systems - Review of Systems General/Constitutional: No fever, No chills, No weight loss, Weakness, No diaphoresis, No edema, No loss of appetite Skin: No skin lesions, No rash, No bruising Head: No headache, No light-headedness Eyes: No loss of vision, No pain, No diplopia ENT: No earache, No nasal drainage, No sore throat, No tinnitus Neck: No neck pain, No swelling, No thyromegaly, No stiffness, No mass noted Cardio Vascular: No chest pain, No palpitations, No PND, No orthopnea, No edema Pulmonary: No SOB, No cough, No sputum, No wheezing GI: No nausea, No vomiting, No diarrhea, No pain, No melena, No hematochezia, No constipation, No hematemesis G/U: No dysuria, No frequency, No hematuria Musculoskeletal: No bone or joint pain, No back pain, No muscle pain Endocrine: No polyuria, No polydipsia Psychiatric: No prior psych history, No depression, No anxiety, No suicidal ideation Hematopoietic: No bruising, No lymphadenopathy Allergic/Immuno: No urticaria, No angioedema Neurological: No syncope, No focal symptoms, No weakness, No paresthesia, No headache, No seizure, No dizziness, No confusion, No vertigo ED Past Medical History - Past Medical History Obtainable: Yes Past Medical History: HTN, Dyslipidemia, Other (alcohol abuse, left shoulder pain) Family Medical History - Family Member Mother History Unknown: Yes ED Physical Exam - Physical Examination General/Constitutional: Awake, Well-developed, well-nourished, Alert, No distress, GCS 15, Non-toxic appearing, Ambulatory Other Gen/Cons comments:: mild weakness Head: Atraumatic Eyes: Lids, conjuctiva normal, PERRL, EOMI Skin: Nl inspection, No rash, No skin lesions, No ecchymosis, Well hydrated, No lymphadenopathy ENMT: External ears, nose nl, Nasal exam nl, Lips, teeth, gums nl Neck: Nontender, Full ROM w/o pain, No JVD, No nuchal rigidity, No bruit, No mass, No stridor Respiratory: Nl effort/Exclusion, Clear to Auscultation, No Wheeze/Rhonchi/Rales Cardio Vascular: RRR, No murmur, gallop, rubs, NL S1 S2 GI: No tenderness/rebounding/guarding, No organomegaly, No hernia, Normal BS's, Nondistended, No mass/bruits, No McBurney tenderness : No CVA tenderness Extremities: No tenderness or effusion, Full ROM, normal strength in all extremities, No edema, Normal digits & nails Neuro/Psych: Alert/oriented, DTR's symmetric, Normal sensory exam, Normal motor strength, Judgement/insight normal, Mood normal, Normal gait, No focal deficits Misc: Normal back, No paraspinal tenderness ED Labs/Radiology/EKG Results - EKG Interpretations EKG Time:: 06:30 Rate & Rhythm: rate = 67 sinus no ectopy seen Miller: right axis ED Assessment - Assessment General Assessment: weakness ED Septic Shock - . Is Septic Shock (SBP<90, OR Lactate>4 mmol\L) present?: No - <6hrs of presentation: Vital Signs: Vital Signs - 8 hr 01/22/19 05:30 Temp 98.1 F HR 79 RR 20 BP 119/56 O2 Sat % 99 ED Reassessment (Disposition) - Reassessment Reassessment Condition:: Improved - Diagnosis Diagnosis:: weakness
[2019-01-22 06:18] LABS: EOSINOPHILE ABSOLUTE 0.2 Th/cmm (0.1-0.4); HEMATOCRIT 37.9 % (41.0-60); HEMOGLOBIN 12.7 gm/dL (12-16); LYMPHOCYTE ABSOLUTE 1.7 Th/cmm (1.5-3.0); MEAN CELL VOLUME 87.7 fl (80-99); MEAN CORPUSCULAR HEMOGLOBIN 29.3 pg (26.0-30.0); MEAN CORPUSCULAR HGB CONC 33.4 pg (28.0-36.0); MONOCYTE ABSOLUTE 1.6 Th/cmm (0.3-1.0); NEUTROPHILE ABSOLUTE 6.3 Th/cmm (1.8-8.0); PLATELET COUNT 172 Th/cmm (150-400); RED BLOOD COUNT 4.33 Mil/cmm (4.30-5.70); RED CELL DISTRIBUTION WIDTH 15.8 % (11.5-20.0); WHITE BLOOD COUNT 9.8 Th/cmm (4.8-10.8)
[2019-01-22 06:49] LABS: ALB/GLOB RATIO 1.4 (1.0-1.8); ALBUMIN 4.4 gm/dL (4.2-5.5); ALKALINE PHOSPHATASE 78 U/L (34-104); ANION GAP 14.4 (7.0-16.0); BILIRUBIN,TOTAL 0.8 mg/dL (0.3-1.0); BUN - UREA NITROGEN 17 mg/dL (7-25); CALCIUM SERUM 9.8 mg/dL (8.6-10.3); CARBON DIOXIDE 23.4 mEq/L (21.0-31.0); CHLORIDE 103 mEq/L (98-107); GFR AFRICAN-AMERICAN > 60.0 ml/min (>90); GFR NON AFRICAN-AMERICAN > 60.0 ml/min; GLUCOSE 109 mg/dL (70-105); POTASSIUM SERUM 3.8 mEq/L (3.5-5.1); SGOT 23 U/L (13-39); SGPT/ALT 18 U/L (7-52); SODIUM SERUM 137 mEq/L (136-145); TOTAL PROTEIN,SERUM 7.6 gm/dL (6.0-8.3)
[2019-01-22 07:41] LABS: BAND NEUTROPHILE 0 % (0-10); LYMPHOCYTE 19 % (20-50)
[2019-01-22 07:42] LABS: BASOPHIL 0 % (0-3); EOSINOPHIL 5 % (0-5); MONOCYTE 15 % (2-10); NEUTROPHILS 61 % (40-80); PLATELET ESTIMATE ADEQUATE (NORMAL)
== END 2019-01-22 08:23 | disposition left against medical advice (07) ==
LOC: ER 05:30
DX: R53.1 Weakness (principal); I10 Essential (primary) hypertension; E78.5 Hyperlipidemia, unspecified
CPT/HCPCS: 99284; 96372; 93005; 84484; 36415; 85007; 85025; 80320; 82140; 82150; 80053; J1885